=== PATIENT | male | born 1975 | race Two or more races ===

== ENCOUNTER 2022-11-13 12:25 | Emergency (ER) | payer SELFPAY ==
[~2022-11-13] VITALS: Ht 188 cm; Wt 119.1 kg
[2022-11-13 13:20] VITALS: BP 137/72; PULSE 91; RESP 18; TEMP 97.3; O2SAT 98
[2022-11-13] MEDS ORDERED: LIDOCAINE 1% HCL (LOCAL ANESTH.) INJ 20ML MDV IJ ONE (13:30)
[2022-11-13] MEDS ORDERED: BACDST PO ×3 (13:48→14:25)
[2022-11-13] MEDS ORDERED: IBUP-1456 PO ×3 (13:48→14:25)
[2022-11-14] MEDS ORDERED: CEPH500C PO (10:53)
== END 2022-11-13 13:59 | disposition home or self-care (01) ==
LOC: ER 12:25
DX: L02.212 Cutaneous abscess of back [any part, except buttock and flank] (principal)
CPT/HCPCS: 10060; 87205; 99283; J2001

== ENCOUNTER 2022-11-14 10:33 | Emergency (ER) | payer SELFPAY ==
[~2022-11-14] VITALS: Ht 188 cm; Wt 120.6 kg
[~2022-11-14 10:33] MED LIST: BACDST PO; IBUP-1456 PO
[2022-11-14 10:47] VITALS: BP 136/74; PULSE 93; RESP 16; TEMP 97.3; O2SAT 97
[2022-11-14] MEDS ORDERED: CEPH500C PO (10:53)
== END 2022-11-14 10:52 | disposition home or self-care (01) ==
LOC: ER 10:33
DX: T81.89XD Other complications of procedures, not elsewhere classified, subsequent encounter (principal)

== ENCOUNTER 2022-11-17 08:22 | Emergency (ER) | payer SELFPAY ==
[~2022-11-17] VITALS: Ht 188 cm; Wt 119.2 kg
[~2022-11-17 08:22] MED LIST changes: +CEPH500C PO
[2022-11-17 08:50] VITALS: BP 151/73; PULSE 99; RESP 14; TEMP 98.1; O2SAT 97
== END 2022-11-17 09:08 | disposition home or self-care (01) ==
LOC: ER 08:22
DX: S30.91XD Unspecified superficial injury of lower back and pelvis, subsequent encounter (principal); Z79.899 Other long term (current) drug therapy; X58.XXXD Exposure to other specified factors, subsequent encounter

== ENCOUNTER 2022-11-19 09:23 | Emergency (ER) | payer SELFPAY ==
[~2022-11-19] VITALS: Ht 188 cm; Wt 117.3 kg
[2022-11-19 10:49] VITALS: BP 119/80; PULSE 95; RESP 18; TEMP 98.9; O2SAT 95
== END 2022-11-19 11:02 | disposition home or self-care (01) ==
LOC: ER 09:23
DX: S30.91XD Unspecified superficial injury of lower back and pelvis, subsequent encounter (principal); Z79.899 Other long term (current) drug therapy; X58.XXXD Exposure to other specified factors, subsequent encounter